=== PATIENT | male | born 1990 ===

== ENCOUNTER 2023-11-28 14:34 | Outpatient (REF) | payer SELFPAY ==
[2023-11-30 16:00] LABS: Amphetamine Screen Urine Not Detected (Not Detect); Barbiturates, Urine Not Detected (Not Detect); Benzodiazepines Screen Urine Not Detected (Not Detect); Buprenorphine Scr Not Detected (Not Detect); Cannabinoid Screen Urine POSITIVE (Not Detect); Cocaine Screen Urine Not Detected (Not Detect); Fentanyl, urine Not Detected (Not Detect); Methadone Screen, Urine Not Detected (Not Detect); Opiate Screen Urine Not Detected (Not Detect); Oxycodone Screen Urine Not Detected (Not Detect); Phencyclidine Screen Urine Not Detected (Not Detect)
== END 2023-11-28 14:35 | disposition home or self-care (01) ==
LOC: HO.PHPLNP 14:34
PROVIDERS: Visit Provider Psychiatry & Neurology Psychiatry
DX: F10.99 Alcohol use, unspecified with unspecified alcohol-induced disorder (principal); F12.90 Cannabis use, unspecified, uncomplicated
CPT/HCPCS: 80307

== ENCOUNTER 2023-12-07 09:15 | Outpatient (RCR) | payer SELFPAY ==
--- NOTE | 2023-11-28 14:41 | PC.ADMIT ---
Patient is a 33 year old single male who self referred to [facility] d/t sxs of depression, anxiety, and PTSD. Struggling financially since losing his job. 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 He was terminated d/t attendance issues on November 30. Stated he had Covid for second time in a year and had no more sick time. Patient also stated he got the flu. Using Marijuana daily from 1-2 joint up to 3-4 when feeling increasing stress. 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 He is thinking about going into the substance use groups however does not know if he wants to at this time and is going to think it over. Patient is alert and oriented x4. Calm and cooperative. He presents with depressed mood and anxious affect. Denied SI, No HI. He was given a copy of his safety plan if needed. Patient stated the only medication he is on is Certirazine.
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
--- NOTE | 2023-12-01 16:46 | HO.PHP ---
Client's case has been opened and reviewed in team.
--- NOTE | 2023-12-02 13:38 | HO.PHP ---
Kulwinder contacted the program stating that he is unable to attend for the day due to struggling with GI issues. Kulwinder reported no safety concerns around SI, plan or intent. Kulwinder disclosed that he is safe and will be in attendance to program on Tuesday.
--- NOTE | 2023-12-05 14:39 | HO.PHP ---
Kulwinder left a VM on [facility] staff members phone line, stating that he would not be in attendance to program today because he forgot he had another appointment. Kulwinder disclosed that he would be in attendance to program tomorrow.
--- NOTE | 2023-12-07 15:47 | HO.PHP ---
[employer] contacted by [facility] with aftercare appts. OP therapy appt is scheduled for December 25 at 10 am with Hafsa Schroeder [address] [place] [address] in [place]. OP Med Provider appt is scheduled for January 23 at 9 am via telehealth with Shruthi Harper.
--- NOTE | 2023-12-08 17:43 | HO.PHP ---
PHP staff member received a voicemail from Kulwinder stating that he is tired and won't be in attendance to program today. Kulwinder disclosed he will be in attendance to program tomorrow. [facility] staff member followed up with Kulwinder and reminded him of our policy around attendance and informed him due to missing 3 days we will have to discharge him. PHP staff member encouraged him to contact Tracie to complete a reassessment so he can complete the program in its entirety. Kulwinder was receptive. [facility] staff member provided his OP provider appointments. Kulwinder was in agreement.
== END 2023-12-07 23:59 | disposition home or self-care (01) ==
LOC: HO.PHPA 09:15
PROVIDERS: Visit Provider Psychiatry & Neurology Psychiatry
DX: F33.1 Major depressive disorder, recurrent, moderate (principal); F41.3 Other mixed anxiety disorders; F43.10 Post-traumatic stress disorder, unspecified; F63.89 Other impulse disorders; F12.10 Cannabis abuse, uncomplicated; Z86.59 Personal history of other mental and behavioral disorders
CPT/HCPCS: 90791; 90853